=== PATIENT | female | born 1960 | race American Indian/Alaskan Native ===

== ENCOUNTER 2016-11-25 17:20 | Emergency (ER) | payer MEDICARE ==
[2016-11-25] MEDS ORDERED: MORPHINE IM ONE (19:42)
[2016-11-25] MEDS ORDERED: CATAPRES PO ONE (19:42)
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
[2016-11-25 20:26] LABS: Basophils % (Auto) 0.3 % (0.0-1.8); Eosinophils % (Auto) 1.2 % (0.0-4.3); Hematocrit 31.5 % (30.3-42.9); Hemoglobin 9.7 gm/dl (10.1-14.3); Mean Corpuscular HGB Conc 31 % (30-34); Mean Corpuscular Volume 77 fl (79-97); Platelet Count 244 K/mm3 (140-440); Red Blood Count 4.11 M/mm3 (3.65-5.03); Red Cell Distribution Width 17.4 % (13.2-15.2); White Blood Count 11.3 K/mm3 (4.5-11.0)
[2016-11-25 20:27] LABS: Mean Corpuscular Hemoglobin 24 pg (28-32)
[2016-11-25 20:41] LABS: Alanine Aminotransferase 16 units/L (7-56); Albumin/Globulin Ratio 1.2 %; Alkaline Phosphatase 88 units/L (35-129); Anion Gap 17 mmol/L; Blood Urea Nitrogen 9 mg/dL (7-17); Calcium 9.3 mg/dL (8.4-10.2); Carbon Dioxide 30 mmol/L (22-30); Chloride 99.5 mmol/L (98-107); Glucose 74 mg/dL (65-100); Potassium 3.5 mmol/L (3.6-5.0); Sodium 143 mmol/L (137-145); Total Protein 7.3 g/dL (6.3-8.2)
[2016-11-25 21:06] VITALS: BP 153/76
== END 2016-11-25 21:21 | disposition home or self-care (01) ==
LOC: ED 17:20
DX: M54.16 Radiculopathy, lumbar region (principal); I10 Essential (primary) hypertension; I50.9 Heart failure, unspecified; E11.9 Type 2 diabetes mellitus without complications; J45.909 Unspecified asthma, uncomplicated; D64.9 Anemia, unspecified; C34.90 Malignant neoplasm of unspecified part of unspecified bronchus or lung; Z87.891 Personal history of nicotine dependence; Z79.4 Long term (current) use of insulin; Z88.5 Allergy status to narcotic agent
CPT/HCPCS: 36415; 80053; 85025; 96372; 99283; J2270

== ENCOUNTER 2017-02-22 09:27 | Outpatient (CLI) | payer MEDICARE ==
--- NOTE | 2017-02-23 08:25 | Mammography Report ---
BILATERAL DIGITAL SCREENING MAMMOGRAM with CAD: 02/22/17 09:27:00 CLINICAL: Routine screening. COMPARISON: 06/29/15 FINDINGS: The breasts are mostly fatty with a few bilateral residual bilateral retroareolar fibroglandular densities.No mass, architectural distortion or suspicious calcifications. IMPRESSION: No mammographic evidence of malignancy. BI-RADS CATEGORY: 1 -- Negative RECOMMENDATION: Routine mammographic screening in one year. COMMENT: Patient follow-up letters are generated by our [employer] application.
== END 2017-02-22 09:28 | disposition home or self-care (01) ==
LOC: MAMMO 09:27
PROVIDERS: ATTEND Internal Medicine
DX: Z12.31 Encounter for screening mammogram for malignant neoplasm of breast (principal)
CPT/HCPCS: 77067; G0202

== ENCOUNTER 2018-05-25 19:27 | Emergency (ER) | payer MEDICARE ==
[2018-05-26] MEDS ORDERED: MORPHINE IM STA (00:21)
--- NOTE | 2018-05-26 01:02 | XRay Report ---
PROCEDURE: XR TIBIA FIBULA 2V RT TECHNIQUE: Right tibia and fibula radiographs, AP and lateral views. HISTORY: black thick rash to lower leg with pain COMPARISONS: None. FINDINGS: Fracture (s) and/or Dislocation(s): None. Joint space(s): Normal. Soft tissues: Normal. Bone mineralization: Benign-appearing sclerosis identified in the proximal tibia and the distal femu r may represents probable bone dysplasia. This can include multiple entities including intramedullary osteosclerosis, myelofibrosis and Paget's disease. Foreign bodies: None. IMPRESSION: There is no evidence of acute fracture or dislocation. Benign-appearing sclerosis identified in the proximal tibia and distal femur as discussed.. This document is electronically signed by Ronel Bruno DO., May 26 2018 01:00:20 AM ET
[2018-05-26 01:31] VITALS: BP 122/86
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
[2018-05-26] MEDS ORDERED: TORADOL IM STA (03:15)
== END 2018-05-26 03:50 ==
LOC: ED 19:27
DX: M85.061 Fibrous dysplasia (monostotic), right lower leg (principal); R21 Rash and other nonspecific skin eruption; I11.0 Hypertensive heart disease with heart failure; I50.9 Heart failure, unspecified; E11.9 Type 2 diabetes mellitus without complications; M19.90 Unspecified osteoarthritis, unspecified site; J44.9 Chronic obstructive pulmonary disease, unspecified; Z87.891 Personal history of nicotine dependence; Z90.710 Acquired absence of both cervix and uterus; Z88.6 Allergy status to analgesic agent; Z79.4 Long term (current) use of insulin
CPT/HCPCS: 73590; 82962; 96372; 99283; J1885; J2270

== ENCOUNTER 2018-07-01 09:43 | Inpatient (IN) | payer MEDICARE ==
[2018-07-01] MEDS ORDERED: ATROVENT IH ONE (10:57)
[2018-07-01] MEDS ORDERED: PROVENTIL IH ONE (10:57)
[2018-07-01] MEDS ORDERED: SOLU-Medrol IV ONE (10:58)
[2018-07-01] MEDS ORDERED: MAGNESIUM SULFATE 2GM/50ML 2 GM/50 ML BAG IV ONE (10:58)
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
[2018-07-01 11:43] LABS: INR 1.03 (0.87-1.13)
[2018-07-01 11:44] LABS: Partial Thromboplastin Time 32.2 Sec. (24.2-36.6)
[2018-07-01] MEDS ORDERED: TESSALON PERLES PO ONE (11:48)
[2018-07-01] MEDS ORDERED: MORPHINE IV ONE (11:48)
[2018-07-01] MEDS ORDERED: TORADOL IV ONE (11:48)
[2018-07-01] MEDS ORDERED: ZOFRAN IV ONE (11:48)
[2018-07-01 11:50] LABS: BUN/Creatinine Ratio 17; Blood Urea Nitrogen 10 mg/dL (7-17); Calcium 8.6 mg/dL (8.4-10.2); Hemolysis Index 0
[2018-07-01] MEDS ORDERED: K-DUR PO ONE (11:52)
[2018-07-01 11:55] LABS: Creatine Kinase MB < 1.0 ng/mL (0.0-4.0)
[2018-07-01 11:56] LABS: Basophils % (Auto) 0.1 % (0.0-1.8); Eosinophils # (Auto) 0.2 K/mm3 (0.0-0.4); Eosinophils % (Auto) 1.2 % (0.0-4.3); Hematocrit 29.6 % (30.3-42.9); Hemoglobin 9.4 gm/dl (10.1-14.3); Lymphocytes # (Auto) 1.2 K/mm3 (1.2-5.4); Lymphocytes % (Auto) 8.7 % (13.4-35.0); Mean Corpuscular HGB Conc 32 % (30-34); Mean Corpuscular Volume 85 fl (79-97); Monocytes % (Auto) 7.5 % (0.0-7.3); Platelet Count 201 K/mm3 (140-440); Red Blood Count 3.49 M/mm3 (3.65-5.03); Red Cell Distribution Width 15.5 % (13.2-15.2)
[2018-07-01] MEDS ORDERED: ROCEPHIN/NS 1 GM/50 ML 1 GM/50 ML BAG IV ONE (12:30)
--- NOTE | 2018-07-01 12:35 | History and Physical Report ---
History of Present Illness Chief complaint: I could not catch my breath History of present illness: 57 YO Female with Chronic Respiratory Failure on 2L Home Oxygen, HTN, DM, OA, Asthma, COPD, Lung Cancer, Pulmonary Fibrosis, Obesity Hypoventilation Syndrome presents to ED for evaluation. Pt states that she has been experiencing shortness of breath, as well as increased productive cough with increased production of yellow sputum, chest tightness, for the past week with worsening symptoms over the past 2 days. Pt reports worsening symptoms over the past 2 days in spite of increased frequency of nebulizer treatments at home. Pt denies fever, chills, CP, Palpitations, NVD, Syncope, Back pain, Unintentional weight loss, night sweats, Hemoptysis, prolonged travel/immobility, unilateral leg swelling, individual/family history of DVT/PE/Blood Clotting Disorders, or recent ill contacts. Pt seen and evaluated in ED and found to have COPD Exacerbation, Pneumonia RLL, as well as Acute on Chronic Respiratory Failure. Pt admitted to [facility] floor and treated with nebulizer therapy with improvement in symptoms. Prior admission on 07/22/16 reviewed. All listed medication reconciled at time of admission. Past History Past Medical History: cancer, COPD, diabetes, hypertension, other (Pulmonary Fibrosis) Past Surgical History: hysterectomy, bowel surgery (bowel surgery, Other (Lung surgery, Rotator cuff, right chest port)), Other (bowel surgery, Other (Lung surgery, Rotator cuff, right chest port)) Social history: single. denies: smoking, alcohol abuse, prescription drug abuse Family history: hypertension Medications and Allergies Allergies Allergy/AdvReac Type Severity Reaction Status Date / Time codeine Allergy Itching Verified 07/29/14 22:49 Home Medications Medication Instructions Recorded Confirmed Last Taken Type ALBUTEROL Inhaler (OR & NICU) 2 puff IH QID PRN 07/01/18 07/01/18 Unknown History [Proair] AtorvaSTATin [Lipitor] 10 mg PO QHS 07/01/18 07/01/18 Unknown History Cetirizine HCl [All Day Allergy] 10 mg PO DAILY 07/01/18 07/01/18 Unknown History Cyclobenzaprine HCl [Flexeril 5 MG 5 mg PO BID 07/01/18 07/01/18 Unknown History TAB] Diltiazem HCl [Diltiazem ER] 180 mg PO DAILY 07/01/18 07/01/18 Unknown History Fluticasone/Umeclidin/Vilanter 1 each IH DAILY 07/01/18 07/01/18 Unknown History [Trelegy Ellipta 100-62.5-25] Insulin Lispro Protamin/Lispro 55 unit SQ BID 07/01/18 07/01/18 Unknown History [Humalog Mix 75-25 Vial] Olmesartan Medoxomil 20 mg PO DAILY 07/01/18 07/01/18 Unknown History [place]-3S/Dha/Epa/Fish Oil/D3 [Fish 1 each PO DAILY 07/01/18 07/01/18 Unknown History Zkz-Hyfoo-3-Vit D Softgel] Oxycodone HCl/Acetaminophen 1 each PO Q6HR PRN 07/01/18 07/01/18 Unknown History [Percocet 10/325 mg] Pregabalin [Lyrica] 100 mg PO TID 07/01/18 07/01/18 Unknown History Quetiapine Fumarate [SEROquel XR] 50 mg PO QDAY 07/01/18 07/01/18 Unknown History Sertraline [Zoloft] 100 mg PO QDAY 07/01/18 07/01/18 Unknown History Sitagliptin Phos/Metformin HCl 1 each PO BID 07/01/18 07/01/18 Unknown History [Janumet 50-500 mg Tablet] traZODone [Desyrel] 100 mg PO QHS 07/01/18 07/01/18 Unknown History Active Meds: Active Medications Azithromycin 500 mg/ Sodium (Chloride) 250 mls @ 250 mls/hr IV ONCE ONE Stop: 07/01/18 13:59 Ceftriaxone Sodium (Rocephin/Ns 1 Gm/50 Ml) 1 gm in 50 mls @ 100 mls/hr IV ONCE ONE; Protocol Stop: 07/01/18 12:59 Review of Systems Constitutional: no weight loss, no weight gain, no fever, no chills Ears, nose, mouth and throat: no ear pain, no ear discharge, no tinnitis, no decreased hearing Breasts: no change in shape, no swelling, no mass Cardiovascular: no chest pain, no orthopnea, no palpitations, no rapid/irregular heart beat, no edema Respiratory: cough, cough with sputum, excessive sputum, shortness of breath, no hemoptysis, no wheezing Gastrointestinal: no nausea, no vomiting, no diarrhea, no constipation Genitourinary Female: no pelvic pain, no flank pain, no menorrhagia, no dysuria, no urinary frequency Rectal: no pain, no incontinence, no bleeding Musculoskeletal: no neck stiffness, no neck pain, no shooting arm pain, no arm numbness/tingling, no low back pain Integumentary: no rash, no pruritis, no redness, no sores, no wounds Neurological: no transient paralysis, no paralysis, no numbness Psychiatric: no anxiety, no memory loss, no change in sleep habits, no sleep disturbances Endocrine: no cold intolerance, no heat intolerance, no polyphagia, no excessive thirst, no polydipsia Hematologic/Lymphatic: no easy bruising, no easy bleeding, no lymphedema Allergic/Immunologic: no urticaria, no allergic rhinitis, no wheezing, no pe rsistent infections, no anaphylaxis Exam - Constitutional Vitals: Temp Pulse Resp BP Pulse Ox 97.9 F 100 H 22 106/71 100 07/01/18 10:55 07/01/18 10:55 07/01/18 11:00 07/01/18 10:55 07/01/18 11:00 General appearance: Present: mild distress - EENT Eyes: Present: PERRL ENT: hearing intact, clear oral mucosa - Neck Neck: Present: supple, normal ROM - Respiratory Respiratory effort: labored Respiratory: bilateral: diminished, wheezing - Cardiovascular Heart Sounds: Present: S1 & S2. Absent: rub, click - Extremities Extremities: pulses symmetrical, No edema Peripheral Pulses: within normal limits - Abdominal General gastrointestinal: Present: soft, non-tender, non-distended, normal bowel sounds Female genitourinary: Present: normal - Integumentary Integumentary: Present: clear, warm, dry - Musculoskeletal Musculoskeletal: gait normal, strength equal bilaterally - Psychiatric Psychiatric: appropriate mood/affect, intact judgment & insight - Neurologic Neurologic: CNII-XII intact, moves all extremities Results - Labs CBC & Chem 7: 07/01/18 11:02 07/01/18 11:02 Labs: Abnormal lab results 07/01/18 07/01/18 Range/Units 11:02 11:02 WBC 13.6 H (4.5-11.0) K/mm3 RBC 3.49 L (3.65-5.03) M/mm3 Hgb 9.4 L (10.1-14.3) gm/dl Hct 29.6 L (30.3-42.9) % MCH 27 L (28-32) pg RDW 15.5 H (13.2-15.2) % Lymph % (Auto) 8.7 L (13.4-35.0) % [place] % (Auto) 7.5 H (0.0-7.3) % [place] # 1.0 H (0.0-0.8) K/mm3 Seg Neutrophils % 82.5 H (40.0-70.0) % Seg Neutrophils # 11.2 H (1.8-7.7) K/mm3 Potassium 3.4 L (3.6-5.0) mmol/L Chloride 96.3 L (98-107) mmol/L Creatinine 0.6 L (0.7-1.2) mg/dL Glucose 275 H (65-100) mg/dL Assessment and Plan - Patient Problems (1) Acute and chronic respiratory failure Status: Acute Qualifiers: Respiratory failure complication: hypoxia Qualified Code(s): J96.21 - Acute and chronic respiratory failure with hypoxia Plan to address problem: Supplemental oxygen, nebulizer therapy, chest x ray, bnp, NIPPV as clinically indicated, ABG, pulse oximetry. (2) Pneumonia Status: Acute Qualifiers: Laterality: right Lung location: lower lobe of lung Plan to address problem: Pneumonia protocol: IV antibiotic therapy, chest x ray, CTA chest, nebulizer therapy, (3) COPD exacerbation Status: Acute Plan to address problem: IV steroid therapy, empric antibiotic therapy, chest x ray, CTA chest, supplemental oxygen, (4) Pulmonary fibrosis Status: Acute Plan to address problem: supplemental oxygen, nebulizer therapy, chest x ray, CT chest, supportive care, IV steroid therapy (5) Obesity hypoventilation syndrome Status: Acute Plan to address problem: supplemental oxygen, nebulizer therapy, NIPPV as clinically indicated, increased physical activity/balanced diet at discharge. (6) Lung cancer Status: Acute Qualifiers: Lung location: unspecified part of lung Plan to address problem: Chronic, Currently in remission, CTA chest, Chest X ray (7) DVT prophylaxis Status: Acute Plan to address problem: SCD to BLE while in bed, prophylactic lovenox
[2018-07-01] MEDS ORDERED: NON-FORMULARY (Oxycodone Hcl/Acetaminophen [Percocet 10/325 Mg] 1 EACH) PO PRN (12:37)
[2018-07-01] MEDS ORDERED: D50W (25GM) Syringe IV PRN (12:40)
[2018-07-01] MEDS ORDERED: SODIUM CHLORIDE FLUSH SYRINGE 10 ML IV PRN (12:55)
[2018-07-01] MEDS ORDERED: ZOFRAN IV PRN (12:55)
[2018-07-01] MEDS ORDERED: TYLENOL PO PRN (12:55)
[2018-07-01] MEDS ORDERED: ZITHROMAX 500 MG in NACL 0.9% 250ML 250 ML IV ONE (13:00)
[2018-07-01] MEDS ORDERED: NON-FORMULARY (Pregabalin [Lyrica] 100 MG) PO SCH (14:00)
[2018-07-01] MEDS ORDERED: LYRICA ONE ×2 (14:52)
[2018-07-01] MEDS: LYRICA PO SCH ×4 (14:59→21:23)
--- NOTE | 2018-07-01 15:20 | Consultation ---
History of Present Illness Consult date: 07/01/18 Requesting physician: FARHAN ARTEAGA Reason for consult: COPD, hypoxemia History of present illness: 57 y/o obese female with known COPD admitted with chest pain and shortness of breath. CTA done which was negative for clot but did reveal bilateral GGO's on both side. Patient currently on ventimask, still short of breath and still with pain. No sick contacts. No fever. Past History Past Medical History: cancer, COPD, diabetes, hypertension, other (Pulmonary Fibrosis) Past Surgical History: hysterectomy, bowel surgery (bowel surgery, Other (Lung surgery, Rotator cuff, right chest port)), Other (bowel surgery, Other (Lung surgery, Rotator cuff, right chest port)) Social history: single. denies: smoking, alcohol abuse, prescription drug abuse Family history: hypertension Medications and Allergies Allergies Allergy/AdvReac Type Severity Reaction Status Date / Time codeine Allergy Itching Verified 07/29/14 22:49 Home Medications Medication Instructions Recorded Confirmed Last Taken Type ALBUTEROL Inhaler (OR & NICU) 2 puff IH QID PRN 07/01/18 07/01/18 Unknown History [Proair] AtorvaSTATin [Lipitor] 10 mg PO QHS 07/01/18 07/01/18 Unknown History Cetirizine HCl [All Day Allergy] 10 mg PO DAILY 07/01/18 07/01/18 Unknown History Cyclobenzaprine HCl [Flexeril 5 MG 5 mg PO BID 07/01/18 07/01/18 Unknown History TAB] Diltiazem HCl [Diltiazem ER] 180 mg PO DAILY 07/01/18 07/01/18 Unknown History Fluticasone/Umeclidin/Vilanter 1 each IH DAILY 07/01/18 07/01/18 Unknown History [Trelegy Ellipta 100-62.5-25] Insulin Lispro Protamin/Lispro 55 unit SQ BID 07/01/18 07/01/18 Unknown History [Humalog Mix 75-25 Vial] Olmesartan Medoxomil 20 mg PO DAILY 07/01/18 07/01/18 Unknown History [place]-3S/Dha/Epa/Fish Oil/D3 [Fish 1 each PO DAILY 07/01/18 07/01/18 Unknown History Iat-Ndjal-4-Vit D Softgel] Oxycodone HCl/Acetaminophen 1 each PO Q6HR PRN 07/01/18 07/01/18 Unknown History [Percocet 10/325 mg] Pregabalin [Lyrica] 100 mg PO TID 07/01/18 07/01/18 Unknown History Quetiapine Fumarate [SEROquel XR] 50 mg PO QDAY 07/01/18 07/01/18 Unknown History Sertraline [Zoloft] 100 mg PO QDAY 07/01/18 07/01/18 Unknown History Sitagliptin Phos/Metformin HCl 1 each PO BID 07/01/18 07/01/18 Unknown History [Janumet 50-500 mg Tablet] traZODone [Desyrel] 100 mg PO QHS 07/01/18 07/01/18 Unknown History Active Meds: Active Medications Acetaminophen (Tylenol) 650 mg PO Q4H PRN PRN Reason: Pain MILD(1-3)/Fever >100.5/VELARDE Albuterol (Proventil) 2.5 mg IH Q4HRT PRN PRN Reason: Shortness Of Breath Atorvastatin Calcium (Lipitor) 10 mg PO QHS NILDA Cyclobenzaprine HCl (Flexeril) 5 mg PO BID [facility] Dextrose (D50w (25gm) Syringe) 50 ml IV PRN PRN PRN Reason: Hypoglycemia Diltiazem HCl (Cardizem Cd) 180 mg PO QDAY NILDA Enoxaparin Sodium (Lovenox) 40 mg SUB-Q QDAY@2200 NILDA Famotidine (Pepcid) 10 mg PO BID [facility] Fish Oil (Fish Oil) 1,000 mg PO QDAY [facility] Azithromycin 500 mg/ Sodium (Chloride) 250 mls @ 250 mls/hr IV Q24HR NILDA; Protocol Ceftriaxone Sodium (Rocephin/Ns 2 Gm/100 Ml) 2 gm in 100 mls @ 200 mls/hr IV Q24HR NILDA; Protocol Insulin Human Lispro (Humalog) 0 unit SUB-Q ACHS NILDA; Protocol Loratadine (Claritin) 10 mg PO DAILY [facility] Losartan Potassium (Cozaar) 50 mg PO QDAY [facility] Methylprednisolone Sodium Succinate (Solu-Medrol) 40 mg IV Q12HR [facility] Miscellaneous Medication (Fluticasone/Umeclidin/Vilanter [Trelegy Ellipta 100-62.5-25]) 1 each IH DAILY [facility] Ondansetron HCl (Zofran) 4 mg IV Q8H PRN PRN Reason: Nausea And Vomiting Oxycodone HCl (Roxicodone) 5 mg PO Q6H PRN PRN Reason: Pain, Moderate (4-6) Oxycodone/Acetaminophen (Percocet 5/325) 1 tab PO Q6H PRN PRN Reason: Pain, Moderate (4-6) Pregabalin (Lyrica) 25 mg PO TID [facility] Last Admin: 07/01/18 14:59 Dose: 25 mg Documented by: Pregabalin (Lyrica) 75 mg PO TID [facility] Last Admin: 07/01/18 15:00 Dose: 75 mg Documented by: Quetiapine Fumarate (Seroquel) 50 mg PO QPM [facility] Sertraline HCl (Zoloft) 100 mg PO QDAY [facility] Sodium Chloride (Sodium Chloride Flush Syringe 10 Ml) 10 ml IV BID [facility] Sodium Chloride (Sodium Chloride Flush Syringe 10 Ml) 10 ml IV PRN PRN PRN Reason: LINE FLUSH Trazodone HCl (Desyrel) 100 mg PO QHS [facility] Review of Systems All systems: negative Physical Examination Vital signs: Vital Signs Pulse Ox 98 07/01/18 10:31 General appearance: appears uncomfortable Eyes: non-icteric Neck: supple, other (large) Effort: mildly labored Ascultation: Bilateral: diminished breath sounds Percussion: Bilateral: not dull Tactile fremitus: Bilateral: normal Cardiovascular: regular rate and rhythm Gastrointestinal: normoactive bowel sounds, soft, non-tender Extremities: no cyanosis, no edema, other (psoariasis) Musculoskeletal: no deformities normal mental status Results - Laboratory Findings CBC and BMP: 07/02/18 Unknown 07/02/18 Unknown PT/INR, D-dimer PT 14.1 Sec. (12.2-14.9) 07/01/18 11:02 INR 1.03 (0.87-1.13) 07/01/18 11:02 Abnormal lab findings: Abnormal Labs 07/01/18 07/01/18 11:02 11:02 WBC 13.6 H RBC 3.49 L Hgb 9.4 L Hct 29.6 L MCH 27 L RDW 15.5 H Lymph % (Auto) 8.7 L [place] % (Auto) 7.5 H [place] # 1.0 H Seg Neutrophils % 82.5 H Seg Neutrophils # 11.2 H Potassium 3.4 L Chloride 96.3 L Creatinine 0.6 L Glucose 275 H - Diagnostic Findings Chest x-ray: image reviewed (bilateral infiltrates) CT scan - chest: image reviewed (bilateral ground glass opacities.) Assessment and Plan 57 y/o female with acute on chronic respiratory failure and possible COPD exacerbation. 1. Agree with abx 2. Would increase steroids to q8 dosing 3. Suggest checking BNP 4. Follow up cardiology 5. Thank you for the consult.
--- NOTE | 2018-07-01 16:13 | XRay Report ---
PROCEDURE: XR CHEST 1V AP TECHNIQUE: Single frontal view of the chest HISTORY: Chest Pain, sob, wheeze COMPARISONS: CT of the chest performed on 02/26/2018 FINDINGS: Right chest port with tip of the catheter in the superior vena cava. Borderline cardiomegaly. Patchy and hazy opacities at the bilateral lung bases. Trace left pleural effusion. No acute bony or soft tissue abnormality. IMPRESSION: Patchy and hazy infiltrate at the bilateral lung bases. Trace left pleural effusion. This document is electronically signed by Ольга Allen MD., July 01 2018 04:11:48 PM ET
--- NOTE | 2018-07-01 16:53 | Cat Scan Report ---
PROCEDURE: CT ANGIO CHEST TECHNIQUE: TECHNIQUE: Computerized tomographic angiography of the chest was performed after the IV i njection of iodinated nonionic contrast including image processing. The image data was postprocessed using 2-dimensional multiplanar reformatted (MPR) and 3-dimensional (MIP and/or volume rendered) emily hniques. Automated exposure control, adjustment of mA and/or kV according to patient size, or iterati ve reconstruction dose optimization techniques were utilized. Coronal and sagittal reconstructed imag ing provided. CT DOSE LENGTH PRODUCT: 700.2 mGy-cm. HISTORY: Dyspnea COMPARISONS: CT chest February 26, 2018. FINDINGS: Large areas of interseptal thickening with groundglass opacities in both lungs. Mild lateral apical e mphysema. No pneumothorax. No effusion. No distinct endobronchial lesions. Main pulmonary artery is unremarkable. No pulmonary embolism. No aneurysm. No dissection. Major branch arteries are within normal limits. [id number] atherosc lerotic disease. Moderate cardiomegaly. No pericardial effusion. Coronary artery disease. There is no axillary adenopathy. There is no hilar or mediastinal mass or adenopathy. Limited images of the thyroid gland are unremarkable. Limited images of the esophagus are unremarkable. Liver: Decreased heterogeneous attenuation may represent hepatocellular disease, fatty infiltration, or cirrhosis. No suspicious lesion. Lobulated contour. Prominent lymph nodes around the GE junction. Bones: No suspicious osseous lesions on this limited examination of the skeleton. Metastatic disease better evaluated with bone scan. Degenerative changes are present in the spine. IMPRESSION: * Hermelindo findings are nonspecific. Differential diagnosis includes atypical pneumonia, hypersensitiv ity pneumonitis, sarcoidosis, usual interstitial pneumonitis, nonspecific interstitial pneumonitis, l ymphocytic interstitial pneumonitis, respiratory bronchiolitis associated interstitial lung disease, follicular bronchiolitis, and Langerhans cell histiocytosis. * Cardiomegaly. * No pulmonary embolus. No aortic aneurysm. No dissection. * Heterogeneous decreased attenuation to the liver with lobulated contour. Suspect cirrhosis. Differ ential diagnosis includes hepatocellular disease and fatty infiltration. * Nonspecific prominent lymph nodes around the GE junction. This document is electronically signed by Scout Nolasco MD., July 01 2018 04:51:36 PM ET
[2018-07-01] MEDS: PERCOCET 5/325 PO PRN (17:26)
[2018-07-01] MEDS: HumaLOG SUB-Q SCH ×2 (17:27→21:25)
[2018-07-01] MEDS: LOVENOX SUB-Q SCH (21:22)
[2018-07-01] MEDS: SOLU-Medrol IV SCH (21:22)
[2018-07-01] MEDS: DESYREL PO SCH (21:23)
[2018-07-01] MEDS: FLEXERIL PO SCH (21:23)
[2018-07-01] MEDS: PEPCID PO SCH (21:23)
[2018-07-01] MEDS: SODIUM CHLORIDE FLUSH SYRINGE 10 ML IV SCH (21:25)
[2018-07-01] MEDS ORDERED: NON-FORMULARY (Cyclobenzaprine Hcl [Flexeril 5 Mg Tab] 5 MG) PO SCH (22:00)
[2018-07-02] MEDS: PERCOCET 5/325 PO PRN ×2 (04:58→14:19)
[2018-07-02] MEDS: ROXICODONE PO PRN ×2 (04:59→14:20)
[2018-07-02 05:32] LABS: Basophils % (Auto) 0.1 % (0.0-1.8); Hematocrit 30.4 % (30.3-42.9); Hemoglobin 9.7 gm/dl (10.1-14.3); Lymphocytes # (Auto) 0.7 K/mm3 (1.2-5.4); Lymphocytes % (Auto) 5.5 % (13.4-35.0); Mean Corpuscular HGB Conc 32 % (30-34); Mean Corpuscular Volume 86 fl (79-97); Monocytes # (Auto) 0.6 K/mm3 (0.0-0.8); Monocytes % (Auto) 4.9 % (0.0-7.3); Platelet Count 201 K/mm3 (140-440); Red Blood Count 3.55 M/mm3 (3.65-5.03); Red Cell Distribution Width 15.5 % (13.2-15.2)
[2018-07-02] MEDS: PROVENTIL IH PRN ×2 (05:46→19:59)
[2018-07-02 05:56] LABS: BUN/Creatinine Ratio 23; Blood Urea Nitrogen 16 mg/dL (7-17); Calcium 8.7 mg/dL (8.4-10.2); Hemolysis Index 4
[2018-07-02] MEDS: LYRICA PO SCH ×6 (08:39→22:17)
[2018-07-02] MEDS: HumaLOG SUB-Q SCH ×5 (08:40→22:21)
--- NOTE | 2018-07-02 09:16 | Progress Note ---
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 Duoneb Pulm fibrosis solmedrol Diabetes mellitus type 2 Fingerstick qac and hs Novolin 70/30 bid History of lung cancer, In remission Morbid obesity History Interval history: Shortness of breath Cough Hospitalist Physical - Physical exam Narrative exam: Gen: Not in acute distress, lying in bed HEENT: Normocephalic, atraumatic Heart: S1 and S2 reg, no murmurs, rubs or gallop Lungs: Bilateral ronchi, no crackles, Abd: soft, non tender, non distended, normal BS Ext: No edema, no clubbing, no cyanosis Neuro: AAO x 3, no focal signs, moves all ext Psych:Normal mood - Constitutional Vitals: Temp Pulse Resp BP Pulse Ox 97.9 F 86 18 147/72 95 07/02/18 04:49 07/02/18 05:56 07/02/18 05:59 07/02/18 04:49 07/02/18 04:49 General appearance: Present: mild distress Results - Labs CBC & Chem 7: 07/02/18 Unknown 07/02/18 Unknown Labs: Laboratory Last Values WBC 13.1 K/mm3 (4.5-11.0) H 07/02/18 Unknown RBC 3.55 M/mm3 (3.65-5.03) L 07/02/18 Unknown Hgb 9.7 gm/dl (10.1-14.3) L 07/02/18 Unknown Hct 30.4 % (30.3-42.9) 07/02/18 Unknown MCV 86 fl (79-97) 07/02/18 Unknown MCH 27 pg (28-32) L 07/02/18 Unknown MCHC 32 % (30-34) 07/02/18 Unknown RDW 15.5 % (13.2-15.2) H 07/02/18 Unknown Plt Count 201 K/mm3 (140-440) 07/02/18 Unknown Lymph % (Auto) 5.5 % (13.4-35.0) L 07/02/18 Unknown [place] % (Auto) 4.9 % (0.0-7.3) 07/02/18 Unknown Eos % (Auto) 0.0 % (0.0-4.3) 07/02/18 Unknown Baso % (Auto) 0.1 % (0.0-1.8) 07/02/18 Unknown Lymph # 0.7 K/mm3 (1.2-5.4) L 07/02/18 Unknown [place] # 0.6 K/mm3 (0.0-0.8) 07/02/18 Unknown Eos # 0.0 K/mm3 (0.0-0.4) 07/02/18 Unknown Baso # 0.0 K/mm3 (0.0-0.1) 07/02/18 Unknown Seg Neutrophils % 89.5 % (40.0-70.0) H 07/02/18 Unknown Seg Neutrophils # 11.7 K/mm3 (1.8-7.7) H 07/02/18 Unknown PT 14.1 Sec. (12.2-14.9) 07/01/18 11:02 INR 1.03 (0.87-1.13) 07/01/18 11:02 APTT 32.2 Sec. (24.2-36.6) 07/01/18 11:02 POC ABG pH 7.396 (7.35-7.45) 07/01/18 16:58 POC ABG pCO2 40.3 (35-45) 07/01/18 16:58 POC ABG pO2 100 (80-105) 07/01/18 16:58 POC ABG HCO3 24.7 (22-26 mml/L) 07/01/18 16:58 POC ABG Total CO2 26 (23-27mmol/L) 07/01/18 16:58 POC ABG O2 Sat 98 07/01/18 16:58 POC ABG Base Excess 0 ((-2) - (+3)mmol/L) 07/01/18 16:58 FiO2 50 % 07/01/18 16:58 Sodium 136 mmol/L (137-145) L 07/02/18 Unknown Potassium 4.3 mmol/L (3.6-5.0) D 07/02/18 Unknown Chloride 97.6 mmol/L (98-107) L 07/02/18 Unknown Carbon Dioxide 26 mmol/L (22-30) 07/02/18 Unknown Anion Gap 17 mmol/L 07/02/18 Unknown BUN 16 mg/dL (7-17) 07/02/18 Unknown Creatinine 0.7 mg/dL (0.7-1.2) 07/02/18 Unknown Estimated GFR > 60 ml/min 07/02/18 Unknown BUN/Creatinine Ratio 23 % 07/02/18 Unknown Glucose 486 mg/dL (65-100) H 07/02/18 Unknown POC Glucose 443 (70-105) H 07/02/18 07:38 Calcium 8.7 mg/dL (8.4-10.2) 07/02/18 Unknown Total Creatine Kinase 49 units/L (30-135) 07/01/18 11:02 CK-MB (CK-2) < 1.0 ng/mL (0.0-4.0) 07/01/18 11:02 CK-MB (CK-2) Rel Index 2.0 (0-4) 07/01/18 11:02 Troponin T < 0.010 ng/mL (0.00-0.029) 07/01/18 15:29 NT-Pro-B Natriuret Pep 60.14 pg/mL (0-900) 07/01/18 11:02 Active Medications - Current Medications Current Medications: Generic Name Dose Route Start Last Admin Trade Name Freq PRN Reason Stop Dose Admin Acetaminophen 650 mg 07/01/18 12:55 Tylenol PO Q4H PRN Pain MILD(1-3)/Fever >100.5/VELARDE Albuterol 2.5 mg 07/01/18 12:55 07/02/18 05:46 Proventil IH 2.5 mg Q4HRT PRN Administration Shortness Of Breath Atorvastatin Calcium 10 mg 07/01/18 22:00 07/01/18 21:23 Lipitor PO 10 mg QHS NILDA Administration Cyclobenzaprine HCl 5 mg 07/01/18 22:00 07/01/18 21:23 Flexeril PO 5 mg BID NILDA Administration Dextrose 50 ml 07/01/18 12:40 D50w (25gm) Syringe IV PRN PRN Hypoglycemia Diltiazem HCl 180 mg 07/02/18 10:00 Cardizem Cd PO QDAY NILDA Enoxaparin Sodium 40 mg 07/01/18 22:00 07/01/18 21:22 Lovenox SUB-Q 40 mg QDAY@2200 NILDA Administration Famotidine 10 mg 07/01/18 22:00 07/01/18 21:23 Pepcid PO 10 mg BID NILDA Administration Fish Oil 1,000 mg 07/02/18 10:00 Fish Oil PO QDAY [facility] Azithromycin 500 mg/ Sodium 250 mls @ 250 mls/hr 07/02/18 10:00 Chloride IV Q24HR [facility] Protocol Ceftriaxone Sodium 2 gm in 100 mls @ 200 mls/hr 07/02/18 10:00 Rocephin/Ns 2 Gm/100 Ml IV Q24HR [facility] Protocol Insulin Human Isoph/Insulin Regular 40 unit 07/02/18 09:30 Humulin 70/30 SUB-Q BIDDIAB NILDA Insulin Human Lispro 0 unit 07/01/18 16:30 07/02/18 08:40 Humalog SUB-Q 10 unit ACHS [facility] Administration Protocol Loratadine 10 mg 07/02/18 10:00 Claritin PO DAILY [facility] Losartan Potassium 50 mg 07/02/18 10:00 Cozaar PO QDAY [facility] Methylprednisolone Sodium Succinate 40 mg 07/01/18 22:00 07/01/18 21:22 Solu-Medrol IV 40 mg Q12HR [facility] Administration Miscellaneous Medication 1 each 07/02/18 10:00 Fluticasone/Umeclidin/Vilanter [Trelegy Ellipta 100-62.5-25] IH DAILY [facility] Ondansetron HCl 4 mg 07/01/18 12:55 Zofran IV Q8H PRN Nausea And Vomiting Oxycodone HCl 5 mg 07/01/18 13:16 07/02/18 04:59 Roxicodone PO 5 mg Q6H PRN Administration Pain, Moderate (4-6) Oxycodone/Acetaminophen 1 tab 07/01/18 13:17 07/02/18 04:58 Percocet 5/325 PO 1 tab Q6H PRN Administration Pain, Moderate (4-6) Pregabalin 25 mg 07/01/18 14:00 07/02/18 08:39 Lyrica PO 25 mg TID [facility] Administration Pregabalin 75 mg 07/01/18 14:00 07/02/18 08:39 Lyrica PO 75 mg TID [facility] Administration Quetiapine Fumarate 50 mg 07/01/18 18:00 07/01/18 17:26 Seroquel PO 50 mg QPM NILDA Administration Sertraline HCl 100 mg 07/02/18 10:00 Zoloft PO QDAY NILDA Sodium Chloride 10 ml 07/01/18 22:00 07/01/18 21:25 Sodium Chloride Flush Syringe 10 Ml IV 10 ml BID NILDA Administration Sodium Chloride 10 ml 07/01/18 12:55 Sodium Chloride Flush Syringe 10 Ml IV PRN PRN LINE FLUSH Trazodone HCl 100 mg 07/01/18 22:00 07/01/18 21:23 Desyrel PO 100 mg QHS NILDA Administration
[2018-07-02] MEDS: SOLU-Medrol IV SCH ×2 (09:36→22:35)
[2018-07-02] MEDS: FISH OIL PO SCH (09:36)
[2018-07-02] MEDS: PEPCID PO SCH ×2 (09:37→22:18)
[2018-07-02] MEDS: CARDIZEM CD PO SCH (09:37)
[2018-07-02] MEDS: CLARITIN PO SCH (09:37)
[2018-07-02] MEDS: FLEXERIL PO SCH ×2 (09:37→22:16)
[2018-07-02] MEDS: COZAAR PO SCH (09:37)
[2018-07-02] MEDS: ROCEPHIN/NS 2 GM/100 ML 2 GM/100 ML BAG IV SCH (09:38)
[2018-07-02] MEDS ORDERED: EPA PO SCH (10:00)
[2018-07-02] MEDS ORDERED: NON-FORMULARY (Diltiazem Hcl [Diltiazem 24hr Er] 180 MG) PO SCH (10:00)
[2018-07-02] MEDS ORDERED: UMECLIDIN IH SCH (10:00)
[2018-07-02] MEDS ORDERED: FLUTICASONE IH SCH (10:00)
[2018-07-02] MEDS ORDERED: NON-FORMULARY (Cetirizine Hcl [All Day Allergy] 10 MG) PO SCH (10:00)
[2018-07-02] MEDS ORDERED: FISH OIL PO SCH (10:00)
[2018-07-02] MEDS ORDERED: VILANTER IH SCH (10:00)
[2018-07-02] MEDS ORDERED: NON-FORMULARY (Quetiapine Fumarate [Seroquel Xr] 50 MG) PO SCH (10:00)
[2018-07-02] MEDS ORDERED: ZITHROMAX 500 MG in NACL 0.9% 250ML 250 ML IV SCH (10:00)
[2018-07-02] MEDS ORDERED: OLMESARTAN MEDOXOMIL 20 MG PO SCH (10:00)
[2018-07-02] MEDS ORDERED: D3 PO SCH (10:00)
[2018-07-02] MEDS ORDERED: DHA PO SCH (10:00)
[2018-07-02] MEDS ORDERED: OMEGA PO SCH (10:00)
[2018-07-02] MEDS: ZOLOFT PO SCH (12:56)
[2018-07-02] MEDS: SODIUM CHLORIDE FLUSH SYRINGE 10 ML IV SCH ×2 (12:57→22:26)
--- NOTE | 2018-07-02 15:32 | Progress Note ---
Assessment and Plan 57 y/o female with acute on chronic respiratory failure and possible COPD exacerbation. 1. Agree with abx 2. Would increase steroids to q8 dosing, will do today. 3. BNP normal 4. Follow up cardiology 5. Thank you for the consult. Subjective Date of service: 07/02/18 Interval history: Still complains of pain. ON venti mask. Wants more pain meds. Objective Vital Signs - 12hr 07/02/18 07/02/18 07/02/18 04:49 04:58 04:59 Temperature 97.9 F Pulse Rate 91 H Pulse Rate [ Anterior Bilateral Throughout] Respiratory 18 18 18 Rate Respiratory Rate [Anterior Bilateral Throughout] Blood Pressure 147/72 O2 Sat by Pulse 95 Oximetry 07/02/18 07/02/18 07/02/18 05:46 05:56 05:58 Temperature Pulse Rate Pulse Rate [ 89 86 Anterior Bilateral Throughout] Respiratory 18 Rate Respiratory 18 18 Rate [Anterior Bilateral Throughout] Blood Pressure O2 Sat by Pulse Oximetry 07/02/18 07/02/18 05:59 11:41 Temperature 98.0 F Pulse Rate 95 H Pulse Rate [ Anterior Bilateral Throughout] Respiratory 18 22 Rate Respiratory Rate [Anterior Bilateral Throughout] Blood Pressure 119/64 O2 Sat by Pulse 93 Oximetry Constitutional: appears uncomfortable Eyes: non-icteric Neck: supple, other (large) Effort: mildly labored Ascultation: Bilateral: diminished breath sounds Percussion: Bilateral: not dull Tactile fremitus: Bilateral: normal Cardiovascular: regular rate and rhythm Gastrointestinal: normoactive bowel sounds, soft, non-tender Extremities: no cyanosis, no edema, other (psoariasis) Neurologic: normal mental status CBC and BMP: 07/02/18 Unknown 07/02/18 Unknown ABG, PT/INR, D-dimer: ABG POC ABG pH 7.396 (7.35-7.45) 07/01/18 16:58 POC ABG pCO2 40.3 (35-45) 07/01/18 16:58 POC ABG pO2 100 (80-105) 07/01/18 16:58 POC ABG HCO3 24.7 (22-26 mml/L) 07/01/18 16:58 POC ABG Total CO2 26 (23-27mmol/L) 07/01/18 16:58 POC ABG O2 Sat 98 07/01/18 16:58 PT/INR, D-dimer PT 14.1 Sec. (12.2-14.9) 07/01/18 11:02 INR 1.03 (0.87-1.13) 07/01/18 11:02 Abnormal lab findings: Abnormal Labs 07/01/18 07/01/18 07/01/18 11:02 11:02 17:02 WBC 13.6 H RBC 3.49 L Hgb 9.4 L Hct 29.6 L MCH 27 L RDW 15.5 H Lymph % (Auto) 8.7 L [place] % (Auto) 7.5 H Lymph # [place] # 1.0 H Seg Neutrophils % 82.5 H Seg Neutrophils # 11.2 H Sodium Potassium 3.4 L Chloride 96.3 L Creatinine 0.6 L Glucose 275 H POC Glucose 324 H 07/01/18 07/02/18 07/02/18 21:03 02:21 07:38 WBC RBC Hgb Hct MCH RDW Lymph % (Auto) [place] % (Auto) Lymph # [place] # Seg Neutrophils % Seg Neutrophils # Sodium Potassium Chloride Creatinine Glucose POC Glucose 434 H 475 H 443 H 07/02/18 07/02/18 07/02/18 11:30 Unknown Unknown WBC 13.1 H RBC 3.55 L Hgb 9.7 L Hct MCH 27 L RDW 15.5 H Lymph % (Auto) 5.5 L [place] % (Auto) Lymph # 0.7 L [place] # Seg Neutrophils % 89.5 H Seg Neutrophils # 11.7 H Sodium 136 L Potassium Chloride 97.6 L Creatinine Glucose 486 H POC Glucose 400 H
[2018-07-02] MEDS: MORPHINE IV PRN (19:04)
[2018-07-02] MEDS: TESSALON PERLES PO SCH ×2 (19:04→22:20)
[2018-07-02] MEDS ORDERED: SOLU-Medrol IV SCH (22:00)
[2018-07-02] MEDS: LOVENOX SUB-Q SCH (22:16)
[2018-07-02] MEDS: DESYREL PO SCH (22:17)
[2018-07-03] MEDS: MORPHINE IV PRN ×4 (01:02→18:33)
[2018-07-03] MEDS: DUONEB *Not for PRN Use IH SCH ×4 (02:41→19:23)
[2018-07-03 05:32] LABS: Hematocrit 29.8 % (30.3-42.9); Hemoglobin 9.3 gm/dl (10.1-14.3); Mean Corpuscular HGB Conc 31 % (30-34); Mean Corpuscular Volume 85 fl (79-97); Platelet Count 201 K/mm3 (140-440); Red Blood Count 3.49 M/mm3 (3.65-5.03); Red Cell Distribution Width 15.1 % (13.2-15.2)
[2018-07-03 05:50] LABS: BUN/Creatinine Ratio 28; Blood Urea Nitrogen 17 mg/dL (7-17); Calcium 8.6 mg/dL (8.4-10.2)
[2018-07-03 05:51] LABS: Hemolysis Index 0
[2018-07-03] MEDS: SOLU-Medrol IV SCH ×2 (06:52→14:12)
[2018-07-03] MEDS: TESSALON PERLES PO SCH ×2 (06:52→14:13)
[2018-07-03] MEDS: HumaLOG SUB-Q SCH ×3 (07:30→16:30)
[2018-07-03] MEDS: LYRICA PO SCH ×4 (08:40→14:12)
[2018-07-03] MEDS: PEPCID PO SCH (09:54)
[2018-07-03] MEDS: COZAAR PO SCH (09:54)
[2018-07-03] MEDS: FLEXERIL PO SCH (09:55)
[2018-07-03] MEDS: ZOLOFT PO SCH (09:55)
[2018-07-03] MEDS: ROCEPHIN/NS 2 GM/100 ML 2 GM/100 ML BAG IV SCH (09:58)
[2018-07-03] MEDS: SODIUM CHLORIDE FLUSH SYRINGE 10 ML IV SCH (09:58)
[2018-07-03] MEDS: CARDIZEM CD PO SCH (09:59)
[2018-07-03] MEDS ORDERED: ZITHROMAX PO SCH (10:00)
[2018-07-03] MEDS: CLARITIN PO SCH (10:01)
[2018-07-03] MEDS: FISH OIL PO SCH (10:02)
[2018-07-03] MEDS: ROBITUSSIN PO PRN ×2 (10:06→18:35)
--- NOTE | 2018-07-03 10:11 | Progress Note ---
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 COPD exacerbation solumedrol Duoneb Pulm fibrosis solmedrol Diabetes mellitus type 2 Fingerstick qac and hs Novolin 70/30 bid History of lung cancer, In remission Morbid obesity History Interval history: Shortness of breath Cough back pain Hospitalist Physical - Physical exam Narrative exam: Gen: Not in acute distress, sitting up, on NC HEENT: Normocephalic, atraumatic Heart: S1 and S2 reg, no murmurs, rubs or gallop Lungs: Bilateral ronchi, no crackles, Abd: soft, non tender, non distended, normal BS Ext: No edema, no clubbing, no cyanosis Neuro: AAO x 3, no focal signs, moves all ext Psych:Normal mood - Constitutional Vitals: Temp Pulse Resp BP Pulse Ox 98.1 F 106 H 20 140/86 94 07/03/18 04:17 07/03/18 09:59 07/03/18 08:06 07/03/18 09:59 07/03/18 07:56 General appearance: Present: mild distress Results - Labs CBC & Chem 7: 07/03/18 05:15 07/03/18 05:15 Labs: Laboratory Last Values WBC 15.1 K/mm3 (4.5-11.0) H 07/03/18 05:15 RBC 3.49 M/mm3 (3.65-5.03) L 07/03/18 05:15 Hgb 9.3 gm/dl (10.1-14.3) L 07/03/18 05:15 Hct 29.8 % (30.3-42.9) L 07/03/18 05:15 MCV 85 fl (79-97) 07/03/18 05:15 MCH 27 pg (28-32) L 07/03/18 05:15 MCHC 31 % (30-34) 07/03/18 05:15 RDW 15.1 % (13.2-15.2) 07/03/18 05:15 Plt Count 201 K/mm3 (140-440) 07/03/18 05:15 Lymph % (Auto) 5.5 % (13.4-35.0) L 07/02/18 Unknown [place] % (Auto) 4.9 % (0.0-7.3) 07/02/18 Unknown Eos % (Auto) 0.0 % (0.0-4.3) 07/02/18 Unknown Baso % (Auto) 0.1 % (0.0-1.8) 07/02/18 Unknown Lymph # 0.7 K/mm3 (1.2-5.4) L 07/02/18 Unknown [place] # 0.6 K/mm3 (0.0-0.8) 07/02/18 Unknown Eos # 0.0 K/mm3 (0.0-0.4) 07/02/18 Unknown Baso # 0.0 K/mm3 (0.0-0.1) 07/02/18 Unknown Seg Neutrophils % 89.5 % (40.0-70.0) H 07/02/18 Unknown Seg Neutrophils # 11.7 K/mm3 (1.8-7.7) H 07/02/18 Unknown PT 14.1 Sec. (12.2-14.9) 07/01/18 11:02 INR 1.03 (0.87-1.13) 07/01/18 11:02 APTT 32.2 Sec. (24.2-36.6) 07/01/18 11:02 POC ABG pH 7.396 (7.35-7.45) 07/01/18 16:58 POC ABG pCO2 40.3 (35-45) 07/01/18 16:58 POC ABG pO2 100 (80-105) 07/01/18 16:58 POC ABG HCO3 24.7 (22-26 mml/L) 07/01/18 16:58 POC ABG Total CO2 26 (23-27mmol/L) 07/01/18 16:58 POC ABG O2 Sat 98 07/01/18 16:58 POC ABG Base Excess 0 ((-2) - (+3)mmol/L) 07/01/18 16:58 FiO2 50 % 07/01/18 16:58 Sodium 137 mmol/L (137-145) 07/03/18 05:15 Potassium 4.5 mmol/L (3.6-5.0) 07/03/18 05:15 Chloride 99.0 mmol/L (98-107) 07/03/18 05:15 Carbon Dioxide 28 mmol/L (22-30) 07/03/18 05:15 Anion Gap 15 mmol/L 07/03/18 05:15 BUN 17 mg/dL (7-17) 07/03/18 05:15 Creatinine 0.6 mg/dL (0.7-1.2) L 07/03/18 05:15 Estimated GFR > 60 ml/min 07/03/18 05:15 BUN/Creatinine Ratio 28 % 07/03/18 05:15 Glucose 411 mg/dL (65-100) H 07/03/18 05:15 POC Glucose 349 (70-105) H 07/03/18 07:59 Hemoglobin A1c 8.1 % (4-6) H 07/03/18 05:15 Calcium 8.6 mg/dL (8.4-10.2) 07/03/18 05:15 Total Creatine Kinase 49 units/L (30-135) 07/01/18 11:02 CK-MB (CK-2) < 1.0 ng/mL (0.0-4.0) 07/01/18 11:02 CK-MB (CK-2) Rel Index 2.0 (0-4) 07/01/18 11:02 Troponin T < 0.010 ng/mL (0.00-0.029) 07/01/18 15:29 NT-Pro-B Natriuret Pep 60.14 pg/mL (0-900) 07/01/18 11:02 Active Medications - Current Medications Current Medications: Generic Name Dose Route Start Last Admin Trade Name Freq PRN Reason Stop Dose Admin Acetaminophen 650 mg 07/01/18 12:55 Tylenol PO Q4H PRN Pain MILD(1-3)/Fever >100.5/VELARDE Albuterol 2.5 mg 07/01/18 12:55 07/02/18 19:59 Proventil IH 2.5 mg Q4HRT PRN Administration Shortness Of Breath Albuterol/Ipratropium 1 ampul 07/03/18 02:00 07/03/18 07:56 Duoneb *Not For Prn Use* IH 1 ampul Q6HRT NILDA Administration Atorvastatin Calcium 10 mg 07/01/18 22:00 07/02/18 22:18 Lipitor PO 10 mg QHS NILDA Administration Azithromycin 500 mg 04/10/19 10:00 07/03/18 09:57 Zithromax PO 07/06/18 10:01 500 mg QDAY NILDA Administration Benzonatate 100 mg 07/02/18 19:00 07/03/18 06:52 Tessalon Perles PO 100 mg Q8HR NILDA Administration Cyclobenzaprine HCl 5 mg 07/01/18 22:00 07/03/18 09:55 Flexeril PO 5 mg BID NILDA Administration Dextrose 50 ml 07/01/18 12:40 D50w (25gm) Syringe IV PRN PRN Hypoglycemia Diltiazem HCl 180 mg 07/02/18 10:00 07/03/18 09:59 Cardizem Cd PO 180 mg QDAY NILDA Administration Enoxaparin Sodium 40 mg 07/01/18 22:00 07/02/18 22:16 Lovenox SUB-Q 40 mg QDAY@2200 NILDA Administration Famotidine 10 mg 07/01/18 22:00 07/03/18 09:54 Pepcid PO 10 mg BID NILDA Administration Fish Oil 1,000 mg 07/02/18 10:00 07/03/18 10:02 Fish Oil PO 1,000 mg QDAY NILDA Administration Guaifenesin 200 mg 07/02/18 18:11 Robitussin PO Q4H PRN Cough Ceftriaxone Sodium 2 gm in 100 mls @ 200 mls/hr 07/02/18 10:00 07/03/18 09:58 Rocephin/Ns 2 Gm/100 Ml IV 200 mls/hr Q24HR NILDA Administration Protocol Insulin Human Isoph/Insulin Regular 55 unit 07/03/18 08:00 07/03/18 08:39 Humulin 70/30 SUB-Q 55 unit BIDDIAB NILDA Administration Insulin Human Lispro 0 unit 07/01/18 16:30 07/03/18 07:30 Humalog SUB-Q 10 unit ACHS NILDA Administration Protocol Loratadine 10 mg 07/02/18 10:00 07/03/18 10:01 Claritin PO 10 mg DAILY NILDA Administration Losartan Potassium 50 mg 07/02/18 10:00 07/03/18 09:54 Cozaar PO 50 mg QDAY NILDA Administration Methylprednisolone Sodium Succinate 60 mg 07/02/18 22:00 07/03/18 06:52 Solu-Medrol IV 60 mg Q8HR NILDA Administration Miscellaneous Medication 1 each 07/02/18 10:00 Fluticasone/Umeclidin/Vilanter [Trelegy Ellipta 100-62.5-25] IH DAILY NILDA Morphine Sulfate 2 mg 07/02/18 18:03 07/03/18 07:27 Morphine IV 2 mg Q4H PRN Administration Pain, Moderate (4-6) Ondansetron HCl 4 mg 07/01/18 12:55 Zofran IV Q8H PRN Nausea And Vomiting Pregabalin 25 mg 07/01/18 14:00 07/03/18 08:40 Lyrica PO 25 mg TID NILDA Administration Pregabalin 75 mg 07/01/18 14:00 07/03/18 08:40 Lyrica PO 75 mg TID NILDA Administration Quetiapine Fumarate 50 mg 07/01/18 18:00 07/02/18 17:51 Seroquel PO 50 mg QPM NILDA Administration Sertraline HCl 100 mg 07/02/18 10:00 07/03/18 09:55 Zoloft PO 100 mg QDAY NILDA Administration Sodium Chloride 10 ml 07/01/18 22:00 07/03/18 09:58 Sodium Chloride Flush Syringe 10 Ml IV 10 ml BID NILDA Administration Sodium Chloride 10 ml 07/01/18 12:55 07/03/18 01:03 Sodium Chloride Flush Syringe 10 Ml IV 10 ml PRN PRN Administration LINE FLUSH Trazodone HCl 100 mg 07/01/18 22:00 07/02/18 22:17 Desyrel PO 100 mg QHS NILDA Administration
--- NOTE | 2018-07-03 14:08 | Progress Note ---
Assessment and Plan 57 y/o female with acute on chronic respiratory failure and possible COPD exacerbation. 1. Agree with abx 2. Continue steroids at current dose 3. BNP normal 4. Follow up cardiology 5. Give lasix 40mg IVx 1 Subjective Date of service: 07/03/18 Interval history: Patient with increasing oxygen requirements. Now on HFNC. Last sat documented at 94% Objective Vital Signs - 12hr 07/03/18 07/03/18 07/03/18 02:44 02:57 04:17 Temperature 98.1 F Pulse Rate 93 H Pulse Rate [ 103 H 108 H Anterior Bilateral Throughout] Respiratory 20 Rate Respiratory 22 22 Rate [Anterior Bilateral Throughout] Blood Pressure 140/69 O2 Sat by Pulse 94 100 Oximetry 07/03/18 07/03/18 07/03/18 07:56 08:06 09:54 Temperature Pulse Rate 97 H Pulse Rate [ 93 H 97 H Anterior Bilateral Throughout] Respiratory Rate Respiratory 20 20 Rate [Anterior Bilateral Throughout] Blood Pressure 140/69 O2 Sat by Pulse 94 Oximetry 07/03/18 09:59 Temperature Pulse Rate 106 H Pulse Rate [ Anterior Bilateral Throughout] Respiratory Rate Respiratory Rate [Anterior Bilateral Throughout] Blood Pressure 140/86 O2 Sat by Pulse Oximetry Constitutional: appears uncomfortable Eyes: non-icteric Neck: supple, other (large) Effort: mildly labored Ascultation: Bilateral: diminished breath sounds Percussion: Bilateral: not dull Tactile fremitus: Bilateral: normal Cardiovascular: regular rate and rhythm Gastrointestinal: normoactive bowel sounds, soft, non-tender Extremities: no cyanosis, no edema, other (psoariasis) Neurologic: normal mental status CBC and BMP: 07/03/18 05:15 07/03/18 05:15 ABG, PT/INR, D-dimer: ABG POC ABG pH 7.396 (7.35-7.45) 07/01/18 16:58 POC ABG pCO2 40.3 (35-45) 07/01/18 16:58 POC ABG pO2 100 (80-105) 07/01/18 16:58 POC ABG HCO3 24.7 (22-26 mml/L) 07/01/18 16:58 POC ABG Total CO2 26 (23-27mmol/L) 07/01/18 16:58 POC ABG O2 Sat 98 07/01/18 16:58 PT/INR, D-dimer PT 14.1 Sec. (12.2-14.9) 07/01/18 11:02 INR 1.03 (0.87-1.13) 07/01/18 11:02 Abnormal lab findings: Abnormal Labs 07/01/18 07/01/18 07/01/18 11:02 11:02 17:02 WBC 13.6 H RBC 3.49 L Hgb 9.4 L Hct 29.6 L MCH 27 L RDW 15.5 H Lymph % (Auto) 8.7 L [place] % (Auto) 7.5 H Lymph # [place] # 1.0 H Seg Neutrophils % 82.5 H Seg Neutrophils # 11.2 H Sodium Potassium 3.4 L Chloride 96.3 L Creatinine 0.6 L Glucose 275 H POC Glucose 324 H Hemoglobin A1c 07/01/18 07/02/18 07/02/18 21:03 02:21 07:38 WBC RBC Hgb Hct MCH RDW Lymph % (Auto) [place] % (Auto) Lymph # [place] # Seg Neutrophils % Seg Neutrophils # Sodium Potassium Chloride Creatinine Glucose POC Glucose 434 H 475 H 443 H Hemoglobin A1c 07/02/18 07/02/18 07/02/18 11:30 16:13 20:51 WBC RBC Hgb Hct MCH RDW Lymph % (Auto) [place] % (Auto) Lymph # [place] # Seg Neutrophils % Seg Neutrophils # Sodium Potassium Chloride Creatinine Glucose POC Glucose 400 H 276 H 332 H Hemoglobin A1c 07/02/18 07/02/18 07/03/18 Unknown Unknown 05:15 WBC 13.1 H 15.1 H RBC 3.55 L 3.49 L Hgb 9.7 L 9.3 L Hct 29.8 L MCH 27 L 27 L RDW 15.5 H Lymph % (Auto) 5.5 L [place] % (Auto) Lymph # 0.7 L [place] # Seg Neutrophils % 89.5 H Seg Neutrophils # 11.7 H Sodium 136 L Potassium Chloride 97.6 L Creatinine Glucose 486 H POC Glucose Hemoglobin A1c 07/03/18 07/03/18 07/03/18 05:15 05:15 07:59 WBC RBC Hgb Hct MCH RDW Lymph % (Auto) [place] % (Auto) Lymph # [place] # Seg Neutrophils % Seg Neutrophils # Sodium Potassium Chloride Creatinine 0.6 L Glucose 411 H POC Glucose 349 H Hemoglobin A1c 8.1 H 07/03/18 12:14 WBC RBC Hgb Hct MCH RDW Lymph % (Auto) [place] % (Auto) Lymph # [place] # Seg Neutrophils % Seg Neutrophils # Sodium Potassium Chloride Creatinine Glucose POC Glucose 316 H Hemoglobin A1c
[2018-07-03] MEDS ORDERED: MORPHINE IV ONE (14:30)
[2018-07-03] MEDS ORDERED: LASIX IV ONE (15:00)
--- NOTE | 2018-07-03 15:08 | XRay Report ---
AP CHEST: HISTORY: Worsening shortness of breath Mild cardiomegaly is stable since 07/01/18. Mild to moderate bilateral interstitial edema has increased. Small left pleural effusion appears stable. No consolidation or pneumothorax. Right [id number] remains in good position. IMPRESSION: Mild CHF/volume overload.
[2018-07-03 18:12] VITALS: BP 168/73
[2018-07-03] MEDS ORDERED: BROVANA NEBU IH SCH (20:00)
[2018-07-03] MEDS ORDERED: PULMICORT IH SCH (20:00)
[2018-07-03] MEDS ORDERED: ADRENALIN ONE (21:48)
[2018-07-03] MEDS ORDERED: ADRENALIN IV ONE (21:48)
--- NOTE | 2018-07-03 23:05 | Event Note ---
Date: 07/03/18 Called to bedside for CODE BLUE, intubation needed. Patient apneic and pulseless. Dr. Toledo at bedside running the code. The patient initially intubated by respiratory therapist, however it was a gastric intubation. Tube was removed and patient was intubated by myself on first attempt. Witnessed tube pass through the cords. Breath sounds equal bilaterally, positive color change on capnography, condensation present within the tube. Patient was intubated with 8.0 ET tube, secured at 24 cm at the lip.
--- NOTE | 2018-07-04 06:58 | Event Note ---
Date: 07/03/18 HALLIE MARQUIS CALLED ON PATIENT, ON ARRIVAL CPR IN PROGRESS, INITIALLY INTUBATION BY RESPIRATORY THERAPIST UNSUCESSFUL , PATIENT SUBSEQUENTLY INTUBATED BY ER DR. CAMILO. FULL ACLS PROTOCOL APPLIED WITHOUT SUCCESS AND PATIENT PRONOUNCED AT 10.30 PM. FAMILY NOTIFIED
--- NOTE | 2018-07-04 07:04 | Event Note ---
Date: 07/03/18 PATIENT WAS LYING LIFELESS ON HER BED AFTER CPR WAS CALLED OFF WITH NO SPONTANEOUS RESPIRATION OR CARDIAC IMPULSE. PUPILS WERE FIXED AND DILATED. PATIENT WAS PRONOUNCED AT 10.30 PM AND FAMILY NOTIFIED
--- NOTE | 2018-07-04 09:23 | Death Summary ---
Summary - Providers Date of service: 08/03/18 Consults: 07/01/18 14:36 Consult to Physician [CONS] Urgent Comment: Consulting Provider: ROBERT TOWNSEND Physician Instructions: Reason For Exam: copd, hypoxia Attending: JONATHON STROUD - summary Date of admission: 07/01/18 12:55 Date of : 07/03/18 Procedures/treatments rendered: Patient 57 yo with chronic respiratory failure on 2L Home Oxygen, hypertension, diabetes, asthma, COPD, pulmonary fibrosis, previous lung cancer, pulmonary fibrosis, Obesity Hypoventilation Syndrome. She presented to ED with shortness of breath, as well as increased productive cough with yellow sputum for 1 week. She was seen and evaluated in ED and found to have acute on chronic respiratory failure secondary to COPD Exacerbation. She was given supplemental Oxygen, started on solumedrol iv, antibiotics and admitted. Pulmonology was consulted and she was evaluated. She was improving slowly, remained short of breath. However on night of 07/02/18 william santiago was called for cardiorespiratory arrest. She was apneac and had no pulse. Reviewing the records, she was found without her oxygen on. Code was run as per ACLS protocol however was unsuccessful. he was pronounced at 10:30 pm on 07/03/18 Total time spent on discharge, 32 mins - Final diagnosis (1) Acute and chronic respiratory failure Qualifiers: Respiratory failure complication: hypoxia Qualified Code(s): J96.21 - Acute and chronic respiratory failure with hypoxia Note: Final diagnosis: (2) COPD exacerbation Note: Final diagnosis: (3) Diabetes Note: Final diagnosis: (4) Obesity hypoventilation syndrome Note: Final diagnosis: (5) Pulmonary fibrosis Note: Final diagnosis: (6) Type 2 diabetes mellitus Qualifiers: Diabetes mellitus complication status: without complication Note: Final diagnosis:
[2018-07-04] MEDS ORDERED: XYLOCAINE TOPICAL 2% 5ML ONE (13:00)
== END 2018-07-04 01:45 | DRG 196 ==
LOC: ED 09:43 → 3A 12:55
PROVIDERS: ADMIT Internal Medicine; ATTEND Internal Medicine
PROC: 4A033R1 Measurement of Arterial Saturation, Peripheral, Percutaneous Approach (ICD-10-PCS; principal; 2018-07-01)
PROC: 5A12012 Performance of Cardiac Output, Single, Manual (ICD-10-PCS; 2018-07-01)
PROC: 0BJ17ZZ Inspection of Trachea, Via Natural or Artificial Opening (ICD-10-PCS; 2018-07-02)
DX: J84.10 Pulmonary fibrosis, unspecified (principal); J18.9 Pneumonia, unspecified organism; J96.21 Acute and chronic respiratory failure with hypoxia; J44.1 Chronic obstructive pulmonary disease with (acute) exacerbation; E66.2 Morbid (severe) obesity with alveolar hypoventilation; N17.9 Acute kidney failure, unspecified; Z68.41 Body mass index [BMI] 40.0-44.9, adult; Z88.6 Allergy status to analgesic agent; L40.9 Psoriasis, unspecified; Z99.81 Dependence on supplemental oxygen; Z85.118 Personal history of other malignant neoplasm of bronchus and lung; E11.9 Type 2 diabetes mellitus without complications; Z79.4 Long term (current) use of insulin; M19.90 Unspecified osteoarthritis, unspecified site; I11.0 Hypertensive heart disease with heart failure; I50.9 Heart failure, unspecified; Z87.891 Personal history of nicotine dependence; D64.9 Anemia, unspecified; Z82.49 Family history of ischemic heart disease and other diseases of the circulatory system
CPT/HCPCS: 36415; 36600; 71045; 71275; 80048; 82550; 82553; 82803; 82962; 83036; 83880; 84484; 85025; 85027; 85610; 85730; 87040; 87116; 93005; 93010; 94640; 94760; 99285; G0378; A9270-GY; J0171; J0456; J0696; J1650; J1815; J1885; J1940; J2270; J2405; J2920; J2930; J3246; J3475; J7050; Q9967